=== PATIENT | female | born 1950 | race Hispanic/Latino ===

== ENCOUNTER 2017-08-27 14:20 | Emergency (ER) | payer MEDICARE ==
[2017-08-27] MEDS ORDERED: IPRATROPIUM/ALBUTEROL SULFATE 3 ML SOLUTION IH ONE (15:20)
[2017-08-27] MEDS ORDERED: DEXAMETHASONE SOD PHOSPHATE 10MG/ML 1ML VIAL ONE (15:24)
== END 2017-08-27 16:19 | disposition home or self-care (01) ==
LOC: EDH 14:20
DX: J18.9 Pneumonia, unspecified organism (principal); J20.9 Acute bronchitis, unspecified; E78.5 Hyperlipidemia, unspecified; I10 Essential (primary) hypertension; Z98.890 Other specified postprocedural states
CPT/HCPCS: 71046; 87804 ×2; 87880; 94640; 96372; 99285; J1100

== ENCOUNTER 2018-10-26 13:18 | Emergency (ER) | payer MEDICARE ==
[2018-10-26] MEDS ORDERED: IPRATROPIUM/ALBUTEROL SULFATE 3 ML SOLUTION IH ONE (13:58)
== END 2018-10-26 15:13 | disposition home or self-care (01) ==
LOC: EDH 13:18
DX: J20.9 Acute bronchitis, unspecified (principal); I10 Essential (primary) hypertension; E78.5 Hyperlipidemia, unspecified; Z98.890 Other specified postprocedural states; Z90.49 Acquired absence of other specified parts of digestive tract; Z90.89 Acquired absence of other organs
CPT/HCPCS: 71046; 94640

== ENCOUNTER → 2021-10-12 | Outpatient (CLI) | payer MEDICARE | END | disposition home or self-care (01) | LOC: RAH 13:13 | PROVIDERS: ATTEND Orthopaedic Surgery | DX: T84.84XA Pain due to internal orthopedic prosthetic devices, implants and grafts, initial encounter (principal); Z96.653 Presence of artificial knee joint, bilateral; Y93.89 Activity, other specified; Y92.89 Other specified places as the place of occurrence of the external cause | CPT/HCPCS: 78315; A9503 ==

== ENCOUNTER 2023-05-02 03:17 | Emergency (ER) | payer MEDICARE ==
[~2023-05-02] VITALS: Ht 172.7 cm; Wt 109.3 kg
[2023-05-02 03:19] VITALS: BP 145/93; PULSE 101; RESP 18
[2023-05-02 04:01] LABS: BASOPHILS # (AUTO) 0.06 K/uL (0.00-0.20); BASOPHILS % (AUTO) 0.6 % (0.0-5.0); EOSINOPHILS # (AUTO) 0.29 K/uL (0.00-0.70); HEMATOCRIT 39.4 % (36-48); IMMATURE GRANULOCYTE ABSOLUTE 0.03 K/uL (0-1); LYMPHOCYTES # (AUTO) 2.4 K/uL (1.0-4.8); LYMPHOCYTES % (AUTO) 25.6 % (21.0-51.0); MEAN CORPUSCULAR HEMOGLOBIN 31.4 pg (27.0-33.0); MEAN CORPUSCULAR HGB CONC 32.5 g/dL (32.0-36.0); MEAN CORPUSCULAR VOLUME 96.6 fL (79-99); MONOCYTES # (AUTO) 0.7 K/uL (0.1-1.0); MONOCYTES % (AUTO) 7.7 % (3.0-13.0); NEUTROPHILS % (AUTO) 62.8 % (40.0-77.0); PLATELET COUNT (AUTO) 269 K/uL (130-400); RED BLOOD CELL COUNT(AUTO) 4.08 MIL/uL (4.00-5.50); RED CELL DISTRIBUTION WIDTH 13.2 % (11.0-15.5); WHITE BLOOD COUNT (AUTO) 9.5 K/uL (4.8-10.8)
[2023-05-02 04:10] LABS: CREATININE 0.7 mg/dL (0.5-1.5); POTASSIUM 3.7 mmol/L (3.5-5.1)
[2023-05-02 04:23] LABS: APPEARANCE,URINE CLOUDY (CLEAR); BILIRUBIN,URINE NEGATIVE (NEGATIVE); COLOR,URINE YELLOW (YELLOW); GLUCOSE, URINE (UA) NEGATIVE (NEGATIVE); KETONES,URINE NEGATIVE (NEGATIVE); LEUKOCYTE ESTERASE ,URINE 250 Leu/uL (NEGATIVE); NITRATE,URINE NEGATIVE (NEGATIVE); OCCULT BLOOD,URINE SMALL (NEGATIVE); PROTEIN,URINE 20 mg/dL (NEGATIVE); UROBILINOGEN,URINE 0.2 mg/dL (0.2-1.0)
[2023-05-02 04:24] LABS: ADD UA MICROSCOPIC YES
[2023-05-02 04:27] LABS: BACTERIA,URINE RARE /HPF (None Seen); CALCIUM OXALATE CRYSTALS,UR FEW /LPF (None Seen); MUCUS,URINE RARE LPF (None Seen); RBC,URINE 51-100 /HPF (0-1); SQUAMOUS EPITHELIAL CELL,UR FEW /HPF (0-2); WBC,URINE 51-100 /HPF (0-1)
[2023-05-02] MEDS ORDERED: FAMOTIDINE 20MG VIAL IV ONE (04:30)
[2023-05-02] MEDS ORDERED: 0.9%NACL 1000ML 1,000 ML IV ONE (04:30)
[2023-05-02] MEDS ORDERED: METOCLOPRAMIDE 10 MG/2 ML VIAL IVP ONE (04:30)
[2023-05-02] MEDS ORDERED: KETOROLAC 30MG VIAL (30MG/ML) IVP ONE (04:30)
[2023-05-02] MEDS ORDERED: CEFTRIAXONE 2GM VIAL IVPB ONE (05:00)
[2023-05-02] MEDS ORDERED: TAMS-1 PO (06:20)
[2023-05-02] MEDS ORDERED: CEPH500B PO (06:20)
[2023-05-02] MEDS ORDERED: PHEN-847 PO (06:20)
== END 2023-05-02 06:31 | disposition home or self-care (01) ==
LOC: EDH 03:17
DX: N20.0 Calculus of kidney (principal); N39.0 Urinary tract infection, site not specified; I10 Essential (primary) hypertension; Z87.442 Personal history of urinary calculi
CPT/HCPCS: 99284; 74176; 96365; 96375; 80048; 85025; 87077; 87088; 87186; 81001; 36415; J3490; J7030; J0696; J1885; J2765

== ENCOUNTER 2024-04-06 17:48 | Emergency (ER) | payer MEDICARE, OTHER ==
[~2024-04-06] VITALS: Ht 172.7 cm; Wt 102.1 kg
[~2024-04-06 17:48] MED LIST: CEPH500B PO; PHEN-847 PO; TAMS-1 PO
[2024-04-06] MEDS: HYDROCODONE/ACETAMINOPHEN 5/325 MG TAB PO ONE (20:17)
[2024-04-06] MEDS ORDERED: NAPR-1196 PO (20:52)
[2024-04-06] MEDS ORDERED: ACET-2079 PO (20:52)
[2024-04-06 21:10] VITALS: BP 127/79; PULSE 88; RESP 20; O2SAT 99
== END 2024-04-06 21:12 | disposition home or self-care (01) ==
LOC: EDH 17:48
DX: S93.601A Unspecified sprain of right foot, initial encounter (principal); E78.00 Pure hypercholesterolemia, unspecified; I10 Essential (primary) hypertension; Z79.899 Other long term (current) drug therapy; Z79.2 Long term (current) use of antibiotics; Z87.442 Personal history of urinary calculi; Z90.49 Acquired absence of other specified parts of digestive tract; Z90.89 Acquired absence of other organs; Z96.653 Presence of artificial knee joint, bilateral; Z96.612 Presence of left artificial shoulder joint; Z98.84 Bariatric surgery status; X50.9XXA Other and unspecified overexertion or strenuous movements or postures, initial encounter; Y93.89 Activity, other specified; Y92.89 Other specified places as the place of occurrence of the external cause; Y99.8 Other external cause status
CPT/HCPCS: 73610; 73630